=== PATIENT | male | born 1980 | race Caucasian/White ===

== ENCOUNTER 2016-07-30 02:44 | Emergency (ER) | payer OTHER ==
[~2016-07-30] VITALS: Ht 172.7 cm; Wt 69.0 kg
[~2016-07-30 02:44] MED LIST: MOTRIN400 MG PO; NOHOMEMEDS; TESSALON PERLE100 MG PO
[2016-07-30 04:06] LABS: INFLUENZA A VIRAL ANTIGEN NEGATIVE; INFLUENZA B VIRAL ANTIGEN NEGATIVE
[2016-07-30] MEDS ORDERED: PROAIR HFA8.5 GM IH (04:42)
[2016-07-30] MEDS ORDERED: ZOFRAN4 MG PO (04:42)
[2016-07-30] MEDS ORDERED: PREDNISONE20 MG PO (04:42)
[2016-07-30] MEDS ORDERED: HYCODAN SYRUP480 ML PO (04:42)
[2016-07-30 04:52] VITALS: BP 134/83
== END 2016-07-30 05:01 | disposition home or self-care (01) ==
LOC: EME 02:44
PROVIDERS: Emergency Medicine
DX: J20.9 Acute bronchitis, unspecified (principal); R11.10 Vomiting, unspecified; F17.200 Nicotine dependence, unspecified, uncomplicated
CPT/HCPCS: 71010; 87502; 94640; 99281; 99284; J1100

== ENCOUNTER 2016-10-20 03:53 | Emergency (ER) | payer BC, OTHER ==
[~2016-10-20] VITALS: Ht 167.6 cm; Wt 66.9 kg
[~2016-10-20 03:53] MED LIST changes: +HYCODAN SYRUP480 ML PO; +PREDNISONE20 MG PO; +PROAIR HFA8.5 GM IH; +ZOFRAN4 MG PO
[2016-10-20 04:23] LABS: HEMATOCRIT 41.9 % (38.0-50.0); MCHC 33.7 G/DL (30.0-36.0); MCV 86.2 FL (86-99); MEAN PLAT.VOLUME 10.1 uM^3 (9.0-12.4); PLATELET COUNT 257 K/uL (156-360); RBC DIS.WIDTH-CV 12.3 % (11.8-14.6); RED BLOOD COUNT 4.86 M/uL (4.00-5.50); WHITE BLOOD COUNT 7.4 K/uL (4.1-10.2)
[2016-10-20 04:28] LABS: ADD MIUA? NO; BILIRUBIN NEGATIVE; BLOOD NEGATIVE; COLOR STRAW ((YELLOW)); GLUCOSE (STRIP) NEGATIVE; KETONES NEGATIVE; LEUKOCYTES NEGATIVE; NITRITE NEGATIVE; PROTEIN (STRIP) NEGATIVE; SPECIFIC GRAVITY 1.009 (1.000-1.030); UCUL ADDED? NO; UROBILINOGEN 0.2 MG/DL (0.2-1.0)
[2016-10-20 04:36] LABS: CHLORIDE 104 mEq/L (99-109)
[2016-10-20 04:37] LABS: POTASSIUM 3.9 mEq/L (3.7-5.4); SODIUM 140 mEq/L (136-147)
[2016-10-20 04:39] LABS: GLUCOSE 94 mg/dL (70-99)
[2016-10-20 04:40] LABS: ANION GAP 10 MEQ/L (2-14)
[2016-10-20 04:41] LABS: TOTAL BILIRUBIN 0.6 mg/dL (0.0-1.0)
[2016-10-20 04:42] LABS: ALKALINE PHOSPHATASE 92 IU/L (3-129); GFR ESTIMATE (CALCULATED) > 59 mL/min/
[2016-10-20 04:44] LABS: UREA NITROGEN (BUN) 15 mg/dL (9-23)
[2016-10-20 05:05] LABS: LIPASE 24 U/L (1.0-51.0)
[2016-10-20] MEDS ORDERED: DULCOLAX5 MG PO (05:21)
[2016-10-20 05:36] VITALS: BP 118/90
== END 2016-10-20 05:37 | disposition home or self-care (01) ==
LOC: EME 03:53
DX: K59.00 Constipation, unspecified (principal); F17.200 Nicotine dependence, unspecified, uncomplicated
CPT/HCPCS: 80053; 81003; 83690; 85027; 99281; 99284

== ENCOUNTER 2016-11-19 04:02 | Emergency (ER) | payer OTHER, BC ==
[~2016-11-19] VITALS: Ht 165.1 cm; Wt 65.2 kg
[~2016-11-19 04:02] MED LIST changes: +DULCOLAX5 MG PO
[2016-11-19 06:44] VITALS: BP 122/93
== END 2016-11-19 06:45 | disposition home or self-care (01) ==
LOC: EME 04:02
PROC: 2W3KX1Z Immobilization of Left Finger using Splint (ICD-10-PCS; principal; 2016-11-19)
DX: S63.611A Unspecified sprain of left index finger, initial encounter (principal); S61.211A Laceration without foreign body of left index finger without damage to nail, initial encounter; W31.9XXA Contact with unspecified machinery, initial encounter; Y92.69 Other specified industrial and construction area as the place of occurrence of the external cause; Y99.0 Civilian activity done for income or pay; F17.200 Nicotine dependence, unspecified, uncomplicated
CPT/HCPCS: 73130; 99281; 99283

== ENCOUNTER 2017-02-17 23:20 | Emergency (ER) | payer BC, OTHER ==
[~2017-02-17] VITALS: Ht 160 cm; Wt 64.4 kg
[2017-02-17 23:47] LABS: HEMATOCRIT 40.9 % (38.0-50.0); MCH 29.7 PG (29.0-34.0); MCHC 34.2 G/DL (30.0-36.0); MCV 86.8 FL (86-99); MEAN PLAT.VOLUME 10.1 uM^3 (9.0-12.4); PLATELET COUNT 260 K/uL (156-360); RBC DIS.WIDTH-CV 11.9 % (11.8-14.6); RBC DIS.WIDTH-SD 38.6 % (39-53); RED BLOOD COUNT 4.71 M/uL (4.00-5.50); WHITE BLOOD COUNT 7.4 K/uL (4.1-10.2)
[2017-02-17 23:58] LABS: CHLORIDE 104 mEq/L (99-109); POTASSIUM 3.8 mEq/L (3.7-5.4); SODIUM 140 mEq/L (136-147)
[2017-02-18] LABS: GLUCOSE 84 mg/dL (70-99)
[2017-02-18 00:02] LABS: ANION GAP 9 MEQ/L (2-14); TOTAL BILIRUBIN 0.5 mg/dL (0.0-1.0)
[2017-02-18 00:04] LABS: ALKALINE PHOSPHATASE 96 IU/L (3-129); GFR ESTIMATE (CALCULATED) > 59 mL/min/
[2017-02-18 00:05] LABS: UREA NITROGEN (BUN) 18 mg/dL (9-23)
[2017-02-18] MEDS ORDERED: ULTRAM50 MG PO (00:29)
[2017-02-18] MEDS ORDERED: FLEXERIL10 MG PO (00:29)
[2017-02-18] MEDS ORDERED: MELOXICAM15 MG PO (00:35)
[2017-02-18 00:50] LABS: ADD MIUA? NO; BILIRUBIN NEGATIVE; BLOOD NEGATIVE; COLOR STRAW ((YELLOW)); GLUCOSE (STRIP) NEGATIVE; KETONES NEGATIVE; LEUKOCYTES NEGATIVE; NITRITE NEGATIVE; PROTEIN (STRIP) NEGATIVE; SPECIFIC GRAVITY 1.008 (1.000-1.030); UCUL ADDED? NO; UROBILINOGEN 0.2 MG/DL (0.2-1.0)
[2017-02-18 01:39] VITALS: BP 117/77
== END 2017-02-18 01:40 | disposition home or self-care (01) ==
LOC: EME 23:20
DX: M54.9 Dorsalgia, unspecified (principal); R00.1 Bradycardia, unspecified; F17.200 Nicotine dependence, unspecified, uncomplicated
CPT/HCPCS: 80053; 81003; 85027; 99281; 99283

== ENCOUNTER 2017-07-08 03:46 | Emergency (ER) | payer BC, OTHER ==
[~2017-07-08] VITALS: Ht 165.1 cm; Wt 65.9 kg
[~2017-07-08 03:46] MED LIST changes: +FLEXERIL10 MG PO; +MELOXICAM15 MG PO; +ULTRAM50 MG PO
[2017-07-08 06:10] VITALS: BP 131/85
== END 2017-07-08 06:10 | disposition home or self-care (01) ==
LOC: EME 03:46
DX: J06.9 Acute upper respiratory infection, unspecified (principal); F17.200 Nicotine dependence, unspecified, uncomplicated
CPT/HCPCS: 99281; 99283

== ENCOUNTER 2018-02-20 11:20 | Emergency (ER) | payer SELFPAY ==
[~2018-02-20] VITALS: Ht 165.1 cm; Wt 65.0 kg
[2018-02-20] MEDS ORDERED: SUDAFED PE PRE1 EAC2 PO (12:59)
[2018-02-20 13:19] LABS: APPEARANCE CLEAR ((CLEAR)); BILIRUBIN NEGATIVE; BLOOD NEGATIVE; COLOR COLORLESS ((YELLOW)); GLUCOSE (STRIP) NEGATIVE; KETONES NEGATIVE; LEUKOCYTES NEGATIVE; NITRITE NEGATIVE; PROTEIN (STRIP) NEGATIVE; SPECIFIC GRAVITY 1.002 (1.000-1.030); UROBILINOGEN 0.2 MG/DL (0.2-1.0)
[2018-02-20 13:38] VITALS: BP 123/78
== END 2018-02-20 13:38 | disposition home or self-care (01) ==
LOC: EME 11:20
PROVIDERS: Physician Assistant
DX: J06.9 Acute upper respiratory infection, unspecified (principal); F17.200 Nicotine dependence, unspecified, uncomplicated
CPT/HCPCS: 81003; 99281; 99284